=== PATIENT | female | born 1990 | race Caucasian/White ===

== ENCOUNTER 2017-04-20 16:49 | Emergency (ER) | payer OTHER ==
[~2017-04-20] VITALS: Ht 165.1 cm; Wt 57.4 kg
[2017-04-20 17:40] LABS: HEMATOCRIT 40.9 % (36.0-46.0); MCH 30.3 PG (29.0-34.0); MCHC 34.7 G/DL (30.0-36.0); MCV 87.4 FL (83-99); MEAN PLAT.VOLUME 11.2 uM^3 (9.5-12.4); PLATELET COUNT 164 K/uL (156-360); RBC DIS.WIDTH-CV 12.7 % (11.8-14.6); RBC DIS.WIDTH-SD 40.5 % (39-53); RED BLOOD COUNT 4.68 M/uL (3.80-5.20); WHITE BLOOD COUNT 6.2 K/uL (4.1-10.2)
[2017-04-20 17:50] LABS: CHLORIDE 108 mEq/L (99-109); POTASSIUM 4.1 mEq/L (3.7-5.4); SODIUM 141 mEq/L (136-147)
[2017-04-20 17:51] LABS: GLUCOSE 97 mg/dL (70-99)
[2017-04-20 17:53] LABS: ANION GAP 10 MEQ/L (2-14)
[2017-04-20 17:55] LABS: GFR ESTIMATE (CALCULATED) > 59 mL/min/
[2017-04-20 17:56] LABS: UREA NITROGEN (BUN) 10 mg/dL (9-23)
[2017-04-20 18:09] LABS: QUANTITATIVE HCG 5409.2 MIU/ML
[2017-04-20 18:19] LABS: TOTAL BILIRUBIN 0.4 mg/dL (0.0-1.0)
[2017-04-20 18:20] LABS: ALKALINE PHOSPHATASE 59 IU/L (3-129)
[2017-04-20 18:23] LABS: DIRECT BILIRUBIN 0.1 mg/dL (0.0-0.3)
[2017-04-20 19:59] LABS: ADD MIUA? YES; BILIRUBIN NEGATIVE; BLOOD LARGE; COLOR YELLOW ((YELLOW)); GLUCOSE (STRIP) 50; KETONES 20; LEUKOCYTES NEGATIVE; NITRITE NEGATIVE; PROTEIN (STRIP) 30; SPECIFIC GRAVITY 1.013 (1.000-1.030); UROBILINOGEN 0.2 MG/DL (0.2-1.0)
[2017-04-20 20:04] LABS: BACTERIA RARE /HPF; EPITHELIAL CELLS RARE /HPF; MUCUS TRACE /LPF; RED BLOOD CELLS TNTC /HPF (0-5); UCUL ADDED? YES; WHITE BLOOD CELLS 0-5 /HPF (0-5)
[2017-04-20 20:36] VITALS: BP 114/76
== END 2017-04-20 20:37 | disposition home or self-care (01) ==
LOC: EME 16:49
PROVIDERS: Physician Assistant Medical
DX: O20.0 Threatened abortion (principal); Z3A.01 Less than 8 weeks gestation of pregnancy
CPT/HCPCS: 76801; 80048; 80076; 81003; 84702; 85027; 86900; 86901; 87086; 99281; 99284

== ENCOUNTER → 2017-04-22 | Outpatient (CLI) | payer OTHER | END | disposition home or self-care (01) | LOC: LAB 13:52 | DX: Z32.00 Encounter for pregnancy test, result unknown (principal) | CPT/HCPCS: 84702 ==

== ENCOUNTER 2018-03-05 12:08 | Outpatient (CLI) | payer BC ==
[2018-03-05 12:20] VITALS: BP 122/67
[2018-03-05] MEDS ORDERED: SYNTHROID112 MCG PO (12:34)
== END 2018-03-05 14:25 | disposition home or self-care (01) ==
LOC: LDRP-OP 12:08 → 2WEST 12:09 → LDRP-OP 05-14 16:55
DX: O26.893 Other specified pregnancy related conditions, third trimester (principal); Z3A.34 34 weeks gestation of pregnancy; R10.9 Unspecified abdominal pain; O99.283 Endocrine, nutritional and metabolic diseases complicating pregnancy, third trimester; E03.9 Hypothyroidism, unspecified
CPT/HCPCS: 59025; G0378

== ENCOUNTER 2018-04-10 16:57 | Inpatient (IN) | payer BC ==
[2018-04-10] VITALS (7 sets, daily range): BP systolic 113–136; BP diastolic 68–75
[~2018-04-10] VITALS: Ht 165.1 cm; Wt 72.7 kg
[~2018-04-10 16:57] MED LIST: SYNTHROID112 MCG PO
[2018-04-10] MEDS ORDERED: EXPECTA PRENAT1 EACH PO (17:51)
[2018-04-10 19:10] LABS: BASOPHIL (%) 0.2 % (0-1); EOSINOPHIL (%) 1.2 % (0-5); EOSINOPHIL COUNT 0.1 K/uL (0-0.3); HEMATOCRIT 37.1 % (36.0-46.0); HEMOGLOBIN 12.8 G/DL (11.9-15.5); IMMATURE GRANULOCYTE (%) 0.6 % (0.0-0.7); LYMPHOCYTE (%) 22.4 % (15-42); MCH 30.8 PG (29.0-34.0); MCHC 34.5 G/DL (30.0-36.0); MCV 89.4 FL (83-99); MONOCYTE (%) 8.6 % (3-12); MONOCYTE COUNT 0.8 K/uL (0-0.8); NEUTROPHIL COUNT 6.1 K/uL (1.8-6.4); PLATELET COUNT 118 K/uL (156-360); RBC DIS.WIDTH-CV 14.4 % (11.8-14.6); RBC DIS.WIDTH-SD 46.5 % (39-53); RED BLOOD COUNT 4.15 M/uL (3.80-5.20); WHITE BLOOD COUNT 9.1 K/uL (4.1-10.2)
[2018-04-10 20:33] LABS: AMPHETAMINE NEGATIVE (500 ng/mL); BARBITURATES NEGATIVE (200 ng/mL); BENZODIAZEPINES NEGATIVE (150 ng/mL); BUPRENORPHINE NEGATIVE (10 ng/mL); COCAINE NEGATIVE (150 ng/mL); METHADONE NEGATIVE (200 ng/mL); METHAMPHETAMINE NEGATIVE (500 ng/mL); OPIATES (MORPHINE) NEGATIVE (100 ng/mL); OXYCODONE NEGATIVE (100 ng/mL); PHENCYCLIDINE NEGATIVE (25 ng/mL); PROPOXYPHENE NEGATIVE (300 ng/mL); THC CANNABINOIDS NEGATIVE (50 ng/mL); TRICYCLIC ANTIDEPRESSANTS NEGATIVE (300 ng/mL)
[2018-04-11] VITALS (21 sets, daily range): BP systolic 102–135; BP diastolic 55–77
[2018-04-11 12:06] LABS: TREPONEMA ANTIBODY NEGATIVE (NEGATIVE)
[2018-04-11] MEDS ORDERED: IBUPROFEN800 MG PO (19:09)
[2018-04-12 07:53] VITALS: BP 116/65
[2018-04-12 14:53] VITALS: BP 112/65
[2018-04-12 23:02] VITALS: BP 126/63
[2018-04-13 08:37] VITALS: BP 125/82
== END 2018-04-13 13:18 | disposition home or self-care (01) | DRG 775 ==
LOC: LDRP-OP 16:57 → 2WEST 16:58 → LDRP-OP 05-14 20:47
PROVIDERS: Advanced Practice Midwife
PROC: 0HQ9XZZ Repair Perineum Skin, External Approach (ICD-10-PCS; principal; 2018-04-10)
PROC: 3E0R3BZ Introduction of Anesthetic Agent into Spinal Canal, Percutaneous Approach (ICD-10-PCS; principal; 2018-04-10)
PROC: 3E033VJ Introduction of Other Hormone into Peripheral Vein, Percutaneous Approach (ICD-10-PCS; principal; 2018-04-10)
PROC: 10E0XZZ Delivery of Products of Conception, External Approach (ICD-10-PCS; principal; 2018-04-10)
PROC: 00HU33Z Insertion of Infusion Device into Spinal Canal, Percutaneous Approach (ICD-10-PCS; principal; 2018-04-10)
PROC: 3E0P7VZ Introduction of Hormone into Female Reproductive, Via Natural or Artificial Opening (ICD-10-PCS; principal; 2018-04-10)
DX: O36.5930 Maternal care for other known or suspected poor fetal growth, third trimester, not applicable or unspecified (principal); Z3A.39 39 weeks gestation of pregnancy; Z37.0 Single live birth; O99.284 Endocrine, nutritional and metabolic diseases complicating childbirth; E06.3 Autoimmune thyroiditis; O71.4 Obstetric high vaginal laceration alone
CPT/HCPCS: 85025; 86780; C1755; G0378; J0595; J3010; J7120